=== PATIENT | male | born 1970 | race African-American/Black ===

== ENCOUNTER 2016-07-27 19:26 | Emergency (ER) | payer OTHER ==
[~2016-07-27] VITALS: Ht 172.7 cm; Wt 108.9 kg
[~2016-07-27 19:26] MED LIST: ATACAND16 MG PO; AZITHROMYCIN 2250 MG PO; CIPROFLOXACIN500 M1 PO; DIFLUCAN150 MG PO; FLAGYL500 MG PO; GLUCOTROL5 MG PO; IBUPROFEN 200200 M1 PO; JANUMET 50-5001 EACH PO; LISINOPRIL20 MG PO; LISINOPRIL5 MG PO; NAPROSYN500 MG PO; NORCO 5-325 TA1 EACH PO; NYSTATIN15 GM TP; PRILOSEC20 MG PO; ZESTRIL20 MG PO
[2016-07-27] MEDS ORDERED: TIZANIDINE HCL4 MG PO (22:20)
[2016-07-27] MEDS ORDERED: IBUPROFEN 600600 M1 PO (22:20)
[2016-07-27 22:25] VITALS: BP 131/64
== END 2016-07-27 22:25 | disposition home or self-care (01) ==
LOC: ER 19:26
DX: S10.93XA Contusion of unspecified part of neck, initial encounter (principal); S30.0XXA Contusion of lower back and pelvis, initial encounter; S20.229A Contusion of unspecified back wall of thorax, initial encounter; S40.012A Contusion of left shoulder, initial encounter; E11.9 Type 2 diabetes mellitus without complications; I10 Essential (primary) hypertension; V49.40XA Driver injured in collision with unspecified motor vehicles in traffic accident, initial encounter; Y93.I9 Activity, other involving external motion; Y92.89 Other specified places as the place of occurrence of the external cause; Y99.8 Other external cause status

== ENCOUNTER 2016-10-20 13:07 | Emergency (ER) | payer OTHER ==
[~2016-10-20] VITALS: Ht 172.7 cm; Wt 104.3 kg
[~2016-10-20 13:07] MED LIST changes: +IBUPROFEN 600600 M1 PO; +TIZANIDINE HCL4 MG PO
[2016-10-20 13:44] LABS: ABSOLUTE NEUTROPHILS 2.2 thou/uL (1.4-8.2); BASOPHILS 1.3 % (0.0-2.0); HEMATOCRIT 46.3 % (42.0-52.0); HEMOGLOBIN 15.6 gm/dL (14.0-18.0); LYMPHOCYTES 38.6 % (24.0-44.0); MCH 28.9 pg (26.0-34.0); MCHC 33.7 g/dL (28.0-37.0); MCV 85.9 fL (80.0-100.0); MONOCYTES 8.5 % (1.0-8.0); PLATELET COUNT 211 thou/uL (150-400); POLYS 48.6 % (36.0-66.0); RBC 5.39 mil/uL (4.50-6.00); RDW 13.5 % (10.5-14.5); WBC 4.6 thou/uL (4.0-11.0)
[2016-10-20 13:45] LABS: MANUAL DIFF NO
[2016-10-20 14:04] LABS: CALCIUM 9.6 mg/dL (8.5-10.1); CREATININE 0.9 mg/dL (0.7-1.3); POTASSIUM 4.3 mmol/L (3.5-5.1)
[2016-10-20] MEDS ORDERED: JANUMET 50-5001 EACH PO (14:13)
[2016-10-20] MEDS ORDERED: ZESTRIL20 MG PO (14:13)
[2016-10-20 14:38] LABS: URINE BILIRUBIN NEGATIVE (Negative); URINE BLOOD NEGATIVE (Negative); URINE COLOR YELLOW; URINE GLUCOSE-RANDOM* 3+ (Negative); URINE KETONES 1+ (Negative); URINE LEUKOCYTES-REFLEX NEGATIVE (Negative); URINE PROTEIN (DIPSTICK) NEGATIVE (Negative); URINE SPECIFIC GRAVITY >= 1.030 (1.003-1.035); URINE UROBILINOGEN 0.2 E.U./dl (0.2-1.0)
[2016-10-20 14:42] VITALS: BP 151/86
== END 2016-10-20 14:45 | disposition home or self-care (01) ==
LOC: ER 13:07
PROVIDERS: Emergency Medicine
DX: R60.9 Edema, unspecified (principal); E11.9 Type 2 diabetes mellitus without complications; I10 Essential (primary) hypertension; G89.29 Other chronic pain; H40.9 Unspecified glaucoma

== ENCOUNTER 2019-11-16 12:39 | Emergency (ER) | payer OTHER ==
[~2019-11-16] VITALS: Ht 175.3 cm; Wt 99.8 kg
[~2019-11-16 12:39] MED LIST changes: +METFORMIN HCL500 MG PO; +PRINIVIL20 MG PO
[2019-11-16 14:01] LABS: ABSOLUTE NEUTROPHILS 4.6 thou/uL (1.4-8.2); BASOPHILS 1.2 % (0.0-2.0); EOSINOPHILS 1.1 % (0.0-3.0); HEMATOCRIT 43.2 % (42.0-52.0); HEMOGLOBIN 14.5 gm/dL (14.0-18.0); LYMPHOCYTES 25.1 % (24.0-44.0); MCHC 33.5 g/dL (28.0-37.0); MCV 86.5 fL (80.0-100.0); MONOCYTES 7.1 % (1.0-8.0); PLATELET COUNT 229 thou/uL (150-400); POLYS 65.5 % (36.0-66.0); RDW 13.5 % (10.5-14.5); WBC 6.9 thou/uL (4.0-11.0)
[2019-11-16 14:09] LABS: CALCIUM 9.1 mg/dL (8.5-10.1)
[2019-11-16 14:10] LABS: POTASSIUM 4.4 mmol/L (3.5-5.1)
[2019-11-16 15:30] VITALS: BP 128/89
== END 2019-11-16 15:33 | disposition home or self-care (01) ==
LOC: ER 12:39
PROVIDERS: Physician Assistant
DX: R53.83 Other fatigue (principal); E11.9 Type 2 diabetes mellitus without complications; I10 Essential (primary) hypertension; Z79.899 Other long term (current) drug therapy; Z20.828 Contact with and (suspected) exposure to other viral communicable diseases

== ENCOUNTER 2019-11-28 12:35 | Emergency (ER) | payer OTHER ==
[~2019-11-28] VITALS: Ht 172.7 cm; Wt 99.8 kg
--- NOTE | ~2019-11-28 | EMS ---
[facility] [address] [place] [address] EMS Patient Care Report Name: CHINO POLANCO Room #: DEP Anna#: [id number] Admission: 11/28/19 Attend Phys: Discharge: 11/28/19 Date of : 74 Report #: [id number] THIS REPORT FOR: //name// Report Transmitted: 11/28/2019 20:05 EMS Care Summary [facility] Incident [id number] @ 11/28/2019 11:59 Incident Location [address] [place] [address] Patient CHINO POLANCO Male, 48 Years 1970 Patient Address [address] [place] [id number] Patient History Diabetes,Hypertension (HTN), Patient Allergies No known allergies, Patient Medications None Reported, Chief Complaint "I have a LANDAVERDE" Disposition Transported No Lights/[place] Dispatch Reason Stroke/CVA Transported To [facility] Narrative HISTORY: Upon EMS arrival the patient was seated in his car with building staff at his side. The patient sated he had a gradual onset of a LANDAVERDE starting at 10:30 this morning. He then went to get lunch thinking if he ate something it would [facility] [address] [place] [address] EMS Patient Care Report Name: CHINO POLANCO Room #: DEP ROBER Castillo#: [id number] Admission: 11/28/19 Attend Phys: Discharge: 11/28/19 Date of : 74 Report #: [id number] get better. The patient denied any difficulty speaking, finding his words, double vision, swallowing, numbness or tingling. The patient stated that he has had LANDAVERDE like this in the past but it has never been this bad. The patient stated the pain was directly in the middle of his forehead. He rated the pain a 10/10. Patient complained of photophobia and blurry vision. The patient denied any N/V, recent surgery, recent illness, unilateral weakness, or loss of sensation. The patent stated that he does have a history of DM and HTN, he said that he last took his HTN medication this morning and is compliant with his medications. The patient stated he felt weaker than normal. Patient stated that he last ate this morning, he stated that he has been drinking an adequate amount of water. TREATMENT: V/S monitored, BG, CSS, exams were repeated, a mask was put on the patient, the patient was put in the position of comfort. TRANSPORT: The patient was able to stand and sit on the cot on his own power, he moved to the ED bed on his own power. DESTINATION: Patient was taken to [facility] ED room 11, report was given to the nursing staff. 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,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,PULSE: 82,RR: 16 R,SPO2: 99 Ox,ETCO2: ,BG: ,PAIN: ,GCS: , 11:57,Call Received 11:57,Psap Call 11:59,Dispatched 12:00,En Route 12:03,On Scene [facility] [address] [place] [address] EMS Patient Care Report Name: CHINO POLANCO Room #: [facility]#: [id number] Admission: 11/28/19 Attend Phys: Discharge: 11/28/19 Date of : 74 Report #: [id number] 12:10,At Patient 12:15,Surgical Mask on Patient,Response: Unchanged 12:19,BP: 170/95 M,PULSE: 16,RR: 16 R,SPO2: 96 Ox,ETCO2: ,B,PAIN: 10,GCS: 15, 12:22,Depart Scene 12:26,BP: 155/79 M,PULSE: 69,RR: 16 R,SPO2: 99 Ox,ETCO2: ,BG: ,PAIN: ,GCS: , 12:31,At Destination 12:31,BP: 177/81 M,PULSE: 62,RR: 16 R,SPO2: 99 Ox,ETCO2: ,BG: ,PAIN: ,GCS: 15, 12:49,Call Closed Disclaimer [email or web address] Copyright 2020 [employer] This EMS Care Summary contains data elements from the applicable legal record (which may be displayed differently). It is designed to provide pertinent information for the following purposes: continuity of care, clinical quality, and state data reporting. The complete legal record is available to ED staff and administrators of the receiving hospital in [employer]'s Patient Tracker. All data is provided "as is."
[2019-11-28 13:24] LABS: ABSOLUTE NEUTROPHILS 3.7 thou/uL (1.4-8.2); BASOPHILS 0.4 % (0.0-2.0); EOSINOPHILS 0.7 % (0.0-3.0); HEMATOCRIT 38.6 % (42.0-52.0); HEMOGLOBIN 12.9 gm/dL (14.0-18.0); LYMPHOCYTES 25.2 % (24.0-44.0); MCH 28.9 pg (26.0-34.0); MCHC 33.5 g/dL (28.0-37.0); MCV 86.5 fL (80.0-100.0); MONOCYTES 6.2 % (1.0-8.0); PLATELET COUNT 198 thou/uL (150-400); POLYS 67.5 % (36.0-66.0); RBC 4.46 mil/uL (4.50-6.00); RDW 13.3 % (10.5-14.5); WBC 5.4 thou/uL (4.0-11.0)
[2019-11-28 13:36] LABS: CALCIUM 8.7 mg/dL (8.5-10.1); CREATININE 0.9 mg/dL (0.7-1.3)
[2019-11-28 13:42] LABS: ALBUMIN 3.6 g/dL (3.4-5.0); TOTAL BILIRUBIN 0.3 mg/dL (0.2-1.0); TOTAL PROTEIN 7.1 g/dL (6.4-8.2)
[2019-11-28 16:16] VITALS: BP 157/69
== END 2019-11-28 16:16 | disposition home or self-care (01) ==
LOC: ER 12:35
PROVIDERS: Physician Assistant
DX: R51 Headache (principal); E11.9 Type 2 diabetes mellitus without complications; I10 Essential (primary) hypertension

== ENCOUNTER 2019-12-13 11:28 | Emergency (ER) | payer OTHER ==
[~2019-12-13] VITALS: Ht 172.7 cm; Wt 99.3 kg
[2019-12-13 13:38] LABS: ABSOLUTE NEUTROPHILS 2.6 thou/uL (1.4-8.2); BASOPHILS 1.3 % (0.0-2.0); EOSINOPHILS 0.4 % (0.0-3.0); HEMATOCRIT 44.4 % (42.0-52.0); HEMOGLOBIN 14.7 gm/dL (14.0-18.0); LYMPHOCYTES 28.2 % (24.0-44.0); MCH 28.7 pg (26.0-34.0); MONOCYTES 8.7 % (1.0-8.0); PLATELET COUNT 233 thou/uL (150-400); POLYS 61.4 % (36.0-66.0); RBC 5.11 mil/uL (4.50-6.00); RDW 13.9 % (10.5-14.5); WBC 4.2 thou/uL (4.0-11.0)
[2019-12-13 13:45] LABS: CALCIUM 9.6 mg/dL (8.5-10.1); CREATININE 0.9 mg/dL (0.7-1.3); POTASSIUM 4.4 mmol/L (3.5-5.1)
[2019-12-13 14:40] LABS: URINE BILIRUBIN NEGATIVE (Negative); URINE BLOOD NEGATIVE (Negative); URINE CLARITY CLEAR; URINE COLOR YELLOW; URINE GLUCOSE-RANDOM* 3+ (Negative); URINE KETONES NEGATIVE (Negative); URINE LEUKOCYTES-REFLEX NEGATIVE (Negative); URINE NITRITE-REFLEX NEGATIVE (Negative); URINE PROTEIN (DIPSTICK) NEGATIVE (Negative); URINE UROBILINOGEN 0.2 E.U./dl (0.2-1.0)
[2019-12-13 14:58] VITALS: BP 110/68
== END 2019-12-13 15:05 | disposition home or self-care (01) ==
LOC: ER 11:28
PROVIDERS: Emergency Medicine
DX: U07.1 COVID-19 (principal); M54.5 Low back pain; I10 Essential (primary) hypertension; E11.9 Type 2 diabetes mellitus without complications; Z79.899 Other long term (current) drug therapy

== ENCOUNTER 2020-08-14 00:53 | Emergency (ER) | payer OTHER ==
[~2020-08-14] VITALS: Ht 172.7 cm; Wt 88.5 kg
[2020-08-14] MEDS ORDERED: TYLENOL325 M1 PO (03:08)
[2020-08-14] MEDS ORDERED: NAPROSYN500 MG PO (03:08)
[2020-08-14] MEDS ORDERED: FLEXERIL PO (03:08)
[2020-08-14 03:32] VITALS: BP 102/68
== END 2020-08-14 03:35 | disposition home or self-care (01) ==
LOC: ER 00:53
DX: M54.41 Lumbago with sciatica, right side (principal); E11.9 Type 2 diabetes mellitus without complications; I10 Essential (primary) hypertension; G89.29 Other chronic pain

== ENCOUNTER 2020-10-04 16:56 | Emergency (ER) | payer OTHER ==
[~2020-10-04] VITALS: Ht 172.7 cm; Wt 99.8 kg
[~2020-10-04 16:56] MED LIST changes: +FLEXERIL PO; +TYLENOL325 M1 PO
[2020-10-04 17:10] VITALS: BP 110/68
[2020-10-04] MEDS ORDERED: PREDNISONE 20 M20 MG PO (18:54)
[2020-10-04] MEDS ORDERED: VENTOLIN HFA 1818 GM INH (18:54)
[2020-10-04] MEDS ORDERED: ZPAK PO (18:54)
== END 2020-10-04 19:49 | disposition home or self-care (01) ==
LOC: ER 16:56
DX: J06.9 Acute upper respiratory infection, unspecified (principal); Z20.822 Contact with and (suspected) exposure to COVID-19; E11.9 Type 2 diabetes mellitus without complications; I10 Essential (primary) hypertension; Z79.84 Long term (current) use of oral hypoglycemic drugs; Z79.1 Long term (current) use of non-steroidal anti-inflammatories (NSAID); Z79.899 Other long term (current) drug therapy

== ENCOUNTER 2020-10-15 03:49 | Emergency (ER) | payer OTHER ==
[~2020-10-15] VITALS: Ht 172.7 cm; Wt 97.5 kg
[~2020-10-15 03:49] MED LIST changes: +PREDNISONE 20 M20 MG PO; +VENTOLIN HFA 1818 GM INH; +ZPAK PO
[2020-10-15] MEDS ORDERED: JARDIANCE10 MG PO (04:00)
[2020-10-15] MEDS ORDERED: NF (04:00)
[2020-10-15 04:35] LABS: URINE BILIRUBIN NEGATIVE (Negative); URINE BLOOD NEGATIVE (Negative); URINE CLARITY CLEAR; URINE COLOR YELLOW; URINE GLUCOSE-RANDOM* 3+ (Negative); URINE KETONES NEGATIVE (Negative); URINE LEUKOCYTES-REFLEX NEGATIVE (Negative); URINE NITRITE-REFLEX NEGATIVE (Negative); URINE PROTEIN (DIPSTICK) NEGATIVE (Negative); URINE SPECIFIC GRAVITY 1.015 (1.005-1.035); URINE UROBILINOGEN 0.2 E.U./dl (0.2-1.0)
[2020-10-15 04:41] LABS: CALCIUM 8.5 mg/dL (8.5-10.1); POTASSIUM 4.3 mmol/L (3.5-5.1)
[2020-10-15 04:43] LABS: ABSOLUTE NEUTROPHILS 3.2 thou/uL (1.4-8.2); BASOPHILS 0.6 % (0.0-2.0); HEMATOCRIT 39.8 % (42.0-52.0); HEMOGLOBIN 13.5 gm/dL (14.0-18.0); LYMPHOCYTES 41.4 % (24.0-44.0); MCH 29.7 pg (26.0-34.0); MCV 87.2 fL (80.0-100.0); MONOCYTES 8.5 % (1.0-8.0); PLATELET COUNT 280 thou/uL (150-400); POLYS 47.5 % (36.0-66.0); RBC 4.56 mil/uL (4.50-6.00); RDW 13.4 % (10.5-14.5); WBC 6.7 thou/uL (4.0-11.0)
[2020-10-15 04:49] LABS: ALBUMIN 3.3 g/dL (3.4-5.0); TOTAL BILIRUBIN 0.2 mg/dL (0.2-1.0); TOTAL PROTEIN 6.9 g/dL (6.4-8.2)
[2020-10-15] MEDS ORDERED: CEPHALEXIN500 MG PO (05:31)
[2020-10-15] MEDS ORDERED: PRILOSEC OTC20 MG PO (05:31)
[2020-10-15 07:28] VITALS: BP 137/84
== END 2020-10-15 07:29 | disposition home or self-care (01) ==
LOC: ER 03:49
PROVIDERS: Emergency Medicine
DX: R10.817 Generalized abdominal tenderness (principal); L03.012 Cellulitis of left finger; E11.9 Type 2 diabetes mellitus without complications; I10 Essential (primary) hypertension; G89.29 Other chronic pain

== ENCOUNTER 2021-02-12 13:10 | Emergency (ER) | payer OTHER ==
[~2021-02-12] VITALS: Ht 172.7 cm; Wt 95.3 kg
[~2021-02-12 13:10] MED LIST changes: +CEPHALEXIN500 MG PO; +JARDIANCE10 MG PO; +NF; +PRILOSEC OTC20 MG PO
[2021-02-12 13:17] VITALS: BP 146/79
[2021-02-12] MEDS ORDERED: PREDNISONE 10 M10 MG PO (14:22)
== END 2021-02-12 14:49 | disposition home or self-care (01) ==
LOC: ER 13:10
DX: M54.41 Lumbago with sciatica, right side (principal); E11.9 Type 2 diabetes mellitus without complications; I10 Essential (primary) hypertension; G89.29 Other chronic pain; Z79.899 Other long term (current) drug therapy